=== PATIENT | male | born 1985 | race Caucasian/White ===

== ENCOUNTER 2018-07-12 11:05 | Emergency (ER) | payer SELFPAY ==
[~2018-07-12] VITALS: Ht 185.4 cm; Wt 96.0 kg
[2018-07-12 12:18] VITALS: BP 126/84
== END 2018-07-12 12:28 | disposition home or self-care (01) ==
LOC: ED 12:15
DX: R42 Dizziness and giddiness (principal); F10.220 Alcohol dependence with intoxication, uncomplicated
CPT/HCPCS: 93005; 99283